=== PATIENT | male | born 1995 | race Caucasian/White ===

== ENCOUNTER 2020-12-06 12:13 | Emergency (ER) | payer OTHER | END 2020-12-06 13:07 | disposition left against medical advice (07) | LOC: ER1 12:13 | DX: N48.89 Other specified disorders of penis (principal); Z53.21 Procedure and treatment not carried out due to patient leaving prior to being seen by health care provider | CPT/HCPCS: 81001 ==

== ENCOUNTER 2021-06-29 16:35 | Emergency (ER) | payer OTHER | END 2021-06-29 17:39 | disposition home or self-care (01) | LOC: ER1 16:35 | DX: S61.213A Laceration without foreign body of left middle finger without damage to nail, initial encounter (principal); F17.210 Nicotine dependence, cigarettes, uncomplicated; W26.0XXA Contact with knife, initial encounter | CPT/HCPCS: 90715; 99283 ==